=== PATIENT | female | born 1975 | race American Indian/Alaskan Native ===

== ENCOUNTER 2017-12-18 10:50 | Emergency (ER) | payer BC, OTHER ==
[~2017-12-18] VITALS: Ht 165.1 cm; Wt 120.2 kg
[~2017-12-18 10:50] MED LIST: AMOX TR-K CLV1 EAC1 PO; FERROUS SULFAT325 MG; METFORMIN HCL500 MG; PRENATA CHEWAB1 EACH
--- OUTSIDE RECORDS SUMMARY | 2017-12-18 11:33 | XMS | Clinical Summary ---
Demographics + + + | Address | [address] [place] [address] Rd | | | [place] [address] | + + + | Home Phone | | + + + | Preferred Language | Unknown | + + + | Marital Status | Single | + + + | Latter-Day Affiliation | Unknown | + + + | Race | or | + + + | Ethnic Group | Not or | + + + Author + + + | Author | [facility] | + + + | Organization | [facility] | + + + | Address | Unknown | + + + | Phone | Unavailable | + + + Support + + +---------+ + | Name | Relationship | Address | Phone | + + +---------+ + | TANK BUENROSTRO | ECON | Unknown | | + + +---------+ + Care Team Providers + +------+ + | Care Conference Translator Name | Role | Phone | + +------+ + | Bev Hobbs PA-C | PP | | + +------+ + Source Comments YEE is fully live on both [facility] and [facility]Patient.[facility] Allergies Not on File Current Medications Not on file Active Problems + + + | Problem | Noted Date | + + + | No-show for appointment | 12/24/2016 | + + + Social History + +-------+ +--------+------+ | Tobacco Use | Types | Packs/Day | Years | Date | | | | | Used | | + +-------+ +--------+------+ | Never Assessed | | | | | + +-------+ +--------+------+ + + + | Sex Assigned at | Date Recorded | | | | + + + | Not on file | | + + + Plan of Treatment + + + + + | Health Maintenance | Due Date | Last Done | Comments | + + + + + | INFLUENZA VACCINE | | | | | (FLU SHOT) | 7 | | | + + + + + Results Not on filefrom Last 3 Months"
--- OUTSIDE RECORDS SUMMARY | 2017-12-18 11:33 | XMS | Clinical Summary ---
Demographics + + + | Address | [address] | | | [place] [address] | + + + | Home Phone | | + + + | Preferred Language | Unknown | + + + | Marital Status | | + + + | Uatsdin Affiliation | PAUMA AMERI | + + + | Race | or | + + + | Ethnic Group | Not or | + + + Author + + + | Author | [facility] | + + + | Organization | [facility] | + + + | Address | Unknown | + + + | Phone | Unavailable | + + + Support + + + + + | Name | Relationship | Address | Phone | + + + + + | Alexandria Zurita | SATISH | [place] | | + + + + + | MICKY FLOYD | ECON | [place] | | + + + + + Care Team Providers + +------+ + | Care Crocheter Hand Name | Role | Phone | + +------+ + | None Per Patient, None Per | PP | Unavailable | | Pt | | | + +------+ + Allergies + + + + + + | Active Allergy | Reactions | Severity | Noted | Comments | | | | | Date | | + + + + + + | Codeine | Other (See Comments) | Low | 02/29/20 | Severe Cramping, | | | | | 11 | chest and stomach | | | | | | pressure,sob | + + + + + + | Milk Containing | Hives | Medium | 09/03/20 | Itch, welts, loose | | Products | | | 11 | stools | + + + + + + | Nickel | Rash | Low | 09/03/20 | Bruises, welts | | | | | 11 | | + + + + + + | Acetaminophen | Other (See Comments) | Low | 09/02/20 | Stomach cramps | | | | | 11 | | + + + + + + | Hydrocodone-Acetamin | Other (See Comments) | Low | 02/29/20 | Headache, stomach | | ophen | | | 11 | pressure, numb legs | + + + + + + Current Medications + + +-------+---------+------+------+-------+ | Prescription | Sig. | Disp. | Refills | Star | End | Statu | | | | | | t | Date | s | | | | | | Date | | | + + +-------+---------+------+------+-------+ | metFORMIN | Take 750 mg by mouth | | | | | Activ | | (GLUCOPHAGE-XR) 750 | 2 Times Daily (with | | | 12/15 | | e | | mg XR tablet | Meals). | | | 11 | | | + + +-------+---------+------+------+-------+ | vitamin C with | Take 1 tablet by | | | 06/0 | | Activ | | flavia hips (VITAMIN | mouth Daily. | | | 3/20 | | e | | C) 1,000 mg Tab | Sporadically takes | | | 11 | | | + + +-------+---------+------+------+-------+ | MULTIVITAMIN WITH | Take 1 tablet by | | | 06/0 | | Activ | | MINERALS | mouth Daily. | | | 3/20 | | e | | (MULTIVITAMIN AND | Sporadically takes | | | 11 | | | | MINERALS ORAL) | | | | | | | + + +-------+---------+------+------+-------+ | CALCIUM CARBONATE | Take 1 tablet by | | | 06/0 | | Activ | | (CALCIUM 600 ORAL) | mouth Daily. Takes | | | 3/20 | | e | | | sporadically | | | 11 | | | + + +-------+---------+------+------+-------+ | vitamin D | Take 50,000 Units by | | | | | Activ | | (ERGOCALCIFEROL) | mouth Once a Week. | | | | | e | | 50,000 unit capsule | | | | | | | + + +-------+---------+------+------+-------+ | biotin (BIOTIN) | Take 300 mcg by | | | | | Activ | | 300 mcg Tab | mouth Daily. | | | | | e | + + +-------+---------+------+------+-------+ | iron | Take 1 capsule by | | | | | Activ | | polysaccharides | mouth Daily With | | | | | e | | (NIFEREX 60) 60 mg | Meal. | | | | | | | capsule | | | | | | | + + +-------+---------+------+------+-------+ | cyanocobalamin | Take 1,000 mcg by | | | | | Activ | | (VIT B-12) 1,000 mcg | mouth Daily. | | | | | e | | tablet | | | | | | | + + +-------+---------+------+------+-------+ | Magnesium 250 mg | Take by mouth. | | | | | Activ | | Tab | | | | | | e | + + +-------+---------+------+------+-------+ | POT CHLORIDE/YOUNG | Take by mouth. | | | | | Activ | | PHOS/MAG (POTASSIUM | | | | | | e | | CL-CALCIUM PHOS-MAG | | | | | | | | ORAL) | | | | | | | + + +-------+---------+------+------+-------+ Active Problems + + + | Problem | Noted Date | + + + | Malnutrition following gastrointestinal surgery | 10/01/2011 | + + + | Morbid obesity (HCC) | 06/06/2011 | + + + | Obstructive sleep apnea of adult | 06/06/2011 | + + + | Type 2 diabetes mellitus (HCC) | 06/06/2011 | + + + | Arthritis | | + + + | Lower extremity edema | | + + + | Back pain | | + + + | Dyslipidemia | | + + + | Polycystic ovarian syndrome | | + + + Social History + +-------+ +--------+------+ | Tobacco Use | Types | Packs/Day | Years | Date | | | | | Used | | + +-------+ +--------+------+ | Never Smoker | | | | | + +-------+ +--------+------+ + + +---------+ + | Alcohol Use | Drinks/We | oz/Week | Comments | | | ek | | | + + +---------+ + | No | | | 9 yrs ago | + + +---------+ + + + + | Sex Assigned at | Date Recorded | | | | + + + | Not on file | | + + + Last Filed Vital Signs + + + + | Vital Sign | Reading | Time Taken | + + + + | Blood Pressure | 133/72 | 07/12/2012 3:00 PM PDT | + + + + | Pulse | 54 | 07/12/2012 3:00 PM PDT | + + + + | Temperature | 35.6 C (96 F) | 07/12/2012 3:00 PM PDT | + + + + | Respiratory Rate | 16 | 09/06/2011 11:17 AM PST | + + + + | Oxygen Saturation | 94% | 09/06/2011 11:17 AM PST | + + + + | Inhaled Oxygen | - | - | | Concentration | | | + + + + | Weight | 122 kg (269 lb) | 07/12/2012 3:00 PM PDT | + + + + | Height | 167.6 cm (5' 6") | 07/12/2012 3:00 PM PDT | + + + + | Body Mass Index | 43.42 | 07/12/2012 3:00 PM PDT | + + + + Plan of Treatment + + + + + | Health Maintenance | Due Date | Last Done | Comments | + + + + + | Eye Exam Chronic | | | | | Disease | 5 | | | + + + + + | Foot Exam | | | | | | 5 | | | + + + + + | Microalbuminuria | | | | | | 5 | | | + + + + + | HIV Screening | | | | | | 0 | | | + + + + + | Pneumo 19-64 Medium | | | | | Risk (1 of 1 - | 4 | | | | PPSV23) | | | | + + + + + | Tetanus | | | | | | 4 | | | + + + + + | Cervical Cancer | | | | | Screening | 6 | | | + + + + + | Lipid Screening | | 01/21/2011 | | | | 2 | | | + + + + + | Hemoglobin A1c | | 03/12/2012, 12/05/2011, | | | | 2 | 01/21/2011 | | + + + + + | Breast Cancer | | | | | Screening | 5 | | | + + + + + | IMM Influenza (#1) | | | | | | 7 | | | + + + + + Results Not on filefrom Last 3 Months Insurance + +--------+ +--------+-------+---------+ | Payer | Benefi | Subscriber | Type | Phone | Address | | | t Plan | ID | | | | | | / | | | | | | | Group | | | | | + +--------+ +--------+-------+---------+ | NETWORK OTHER | FIRST | [id number] | Indemn | | | | | CHOICE | | ity | | | | | | | | | | | | HEALTH | | | | | | | | | | | | | | NETWOR | | | | | | | K | | | | | | | OTHER | | | | | + +--------+ +--------+-------+---------+ + +--------+ +--------+ + + | Guarantor Name | Accoun | Relation to | Date | Phone | Billing Address | | | t Type | Patient | of | | | | | | | | | | + +--------+ +--------+ + + | MINI RIZO | Person | Self | [birth year] | Work: | [id number] | | | jazlyn/Sh[place]om | | 1974 | [phone] | [place] | | | [place]zy | | | [address]: | [phone] | | | | | | | | | | | | | [phone] | | | | | | | 1903 | | + +--------+ +--------+ + + Advance Directives Patient has advance directives. For more information, please contact:[email or web address] [place] [address]
--- OUTSIDE RECORDS SUMMARY | 2017-12-18 11:34 | XMS | Clinical Summary ---
Demographics + + + | Address | [address] | | | [place] [address] | + + + | Home Phone | | + + + | Preferred Language | Unknown | + + + | Marital Status | | + + + | Church Affiliation | CAMPO AMERI | + + + | Race [...] Team Providers + +------+ + | Care Brick Shader Name | Role | Phone | + [...] +--------+-------+---------+ | NETWORK OTHER | FIRST | [id number] | Indemn | | | | | [...] | Self | [birth year] | Work: | [id number] | | | jazlyn/Shalom | | 1974 | [phone] | [place] | | | suzy | | | [address] Home: | [phone] | | | | | | | | | | | | | [phone] | | | | | | | 1903 | | + +--------+ +--------+ + + Advance Directives Patient has advance directives. For more information, please contact:[email or web address] [place] [address]
--- OUTSIDE RECORDS SUMMARY | 2017-12-18 11:34 | XMS | Clinical Summary ---
Demographics + + + | Address | [address] [place] [address] Rd | | | [place] [address] | + + + | Home Phone | | + + + | Preferred Language | Unknown | + + + | Marital Status | Single | + + + | Islam Affiliation | Unknown | + + + [...] Team Providers + +------+ + | Care Detonator Maker Name | Role | Phone | + +------+ + | Bev Hobbs PA-C | PP | | + +------+ + Source Comments YEE is fully live on both [facility] and [facility] InPatient.[facility] Allergies Not on File Current Medications [...]
--- NOTE | 2018-01-07 12:48 | HP ---
[facility] [address], [place] [address] Signed ADMISSION DATE: 12/18/2017 CHIEF COMPLAINT: Possible ectopic . HISTORY OF PRESENT ILLNESS: Ms. Troy Zurita is a pleasant 42-year-old G4, P1-0-2-1, [place] female, who presents to the emergency room complaining of positive test, spotting, and slight abdominal and pelvic pain. She believes her last menstrual period was approximately 11/09/2017, and reports her periods are regular every approximately 40 days. She has a 3-day history of some cramping in the right lower quadrant that is made worse with eating. She also developed light spotting approximately 10 days ago, which she thought was an early period. The bleeding has gone from red to brown waxing and waning, and is now more red. She is currently sexually active with her boyfriend of 1-1/2 years and has noticed increased breast tenderness and some spontaneous approximately 3 weeks ago. Last night, she became concerned that she might be and presented to [facility] for further evaluation. A urine test was performed and positive. The patient was sent to the emergency room for possible ectopic . While in the emergency room, she had a quant hCG of 706, and an ultrasound that showed no intrauterine . There is a small mass 1.3 x 1.0 x 1.1 cm with a central fluid collection near the right ovary. The right ovary is normal and the left ovary shows a small cyst suspicious for corpus luteum. In the right adnexal mass, there is no obvious pole, yolk sac, or gestational sac. There is no pseudo sac or gestational sac, pole or yolk sac located in the uterus either. I was asked to present and evaluate the patient. PAST MEDICAL HISTORY: 1. Obesity status post Yamile-en-Y. 2. PCOS. PAST SURGICAL HISTORY: 1. Cholecystectomy. 2. Yamile-en-Y in 2010. 3. Knee surgery. 4. Prior . MEDICATIONS: Multivitamin. ALLERGIES: 1. Codeine. Electronically Signed By: HADLEY TIMMONS DO 01/07/18 1248 PATIENT NAME: MINI CERVANTES HISTORY AND PHYSICAL DATE OF : 75 REPORT #: [id number] PHYSICIAN: HADLEY TIMMONS DO PCP: AWILDA NEIL REPORT IS CONFIDENTIAL AND NOT TO BE RELEASED WITHOUT AUTHORIZATION [facility] [address], [place] [address] Signed 2. Vicodin. 3. Percocet. 4. She has cramping and hives with oral narcotics. SOCIAL HISTORY: She does not smoke or drink or use illicit drugs. Approximately 20 lifetime partners with no history of sexually transmitted diseases. FAMILY HISTORY: Her maternal grandmother had cancer of her leg and her maternal grandfather had skin and prostate cancer. She denies any other medical family history. REVIEW OF SYSTEMS: A complete review of systems was performed and positive only for low cramping in the right pelvis that radiates toward the rectum for approximately 3 days. Of note, she has no history of ectopic , STD or infertility. PHYSICAL EXAMINATION: VITAL SIGNS: Temperature 99.1, pulse 60, respiratory rate 16, blood pressure 119/49, pulse ox 100. GENERAL: The patient is resting comfortably in the ER cot, in no apparent distress. She is pleasant and cooperative. She makes good eye contact and is laughing and joking. HEENT: Normocephalic, atraumatic. NECK: Supple. Trachea midline. No thyroid masses or nodules. RESPIRATORY: Lungs are clear to auscultation bilaterally. Normal respiratory effort. HEART: Regular rate and rhythm. ABDOMEN: Obese, soft, nondistended, nontender. There is no guarding or rebound. Prior surgical scars consistent with surgical history including Pfannenstiel skin incision. EXTREMITIES: No edema. Normal range of motion. PELVIC: Normal. EXTERNAL GENITALIA: Normal clitoris, urethral meatus, bilateral Bartholin's. The vagina appears normal with normal rugae. No significant prolapse. There is a tiny amount of blood at the cervical os, but the os is closed. On bimanual exam, the uterus is small, anteverted and nontender. The left adnexa is nontender and the right adnexa is very slightly tender to exam. She again has no rebound or guarding and reports minimal tenderness to pelvic exam. LABORATORY DATA: WBC 7.0, hemoglobin 11.8, platelets 254. Sodium 137, potassium 3.9, chloride 107, carbon dioxide 26, BUN 15, creatinine 0.47, glucose 87. Quant hCG 706.8. Urine is normal. IMAGING: Electronically Signed By: HADLEY TIMMONS DO 01/07/18 1248 PATIENT NAME: MINI CERVANTES HISTORY AND PHYSICAL DATE OF : 75 REPORT #: [id number] PHYSICIAN: HADLEY TIMMONS DO PCP: AWILDA NEIL REPORT IS CONFIDENTIAL AND NOT TO BE RELEASED WITHOUT AUTHORIZATION [facility] [address] [place] [id number] Signed Pelvic ultrasound as above. ASSESSMENT: of unknown location. PLAN: Discussed options for further evaluation and treatment of of unknown location. There is a suspicious mass in the right adnexa for possible tubal ectopic . There is no definitive with pole or yolk sac. There are changes that may suggest an ectopic . There is no evidence of intrauterine at this point. We discussed that her quant hCG at 700 is well below the discriminatory zone and there is a chance for a viable , however, this is unlikely. We discussed the option of diagnostic laparoscopy with possible right salpingectomy if there is a mass is suspicious for ectopic . We also discussed the option of returning 48 hours with repeat quant and ultrasound. We did discuss that methotrexate is not a good option at this time as this is a wanted and may represent a heterotopic or viable intrauterine , however, most likely is ectopic again at this point. The patient strongly feels that she would like to delay surgery at this point and elects for evaluation in 48 hours. She will return to the ER for repeat labs and ultrasound. We will also check a blood type and give RhoGAM if she is Rh negative. We did discuss the not insignificant risk of progression to tubal rupture with internal bleeding and discussed that continued observation is only appropriate if she is reliable for followup and presents should she have any abdominal pain or worsening of symptoms. The patient understands and agrees and seems reliable at this time to continue observation. Risks, benefits, and alternatives were again discussed in great detail. I reviewed this with Dr. Wilkes, the ER physician, who agrees with this plan. All questions were answered and patient will follow up as above. DO MIGUEL ANGEL Tang/DIEGO /[id number] Copies: Electronically Signed By: HADLEY TIMMONS, DO 01/07/18 1248 PATIENT NAME: MINI CERVANTES HISTORY AND PHYSICAL DATE OF : 75 REPORT #: [id number] PHYSICIAN: HADLEY TIMMONS DO PCP: AWILDA NEIL REPORT IS CONFIDENTIAL AND NOT TO BE RELEASED WITHOUT AUTHORIZATION [address] [facility] [place] [place] [address] Signed ~ Electronically Signed By: HADLEY TIMMONS, DO 01/07/18 1248 PATIENT NAME: MINI CERVANTES HISTORY AND PHYSICAL DATE OF : 75 REPORT #: [id number] PHYSICIAN: HADLEY TIMMONS DO PCP: AWILDA NEIL REPORT IS CONFIDENTIAL AND NOT TO BE RELEASED WITHOUT AUTHORIZATION
== END 2017-12-18 14:50 | disposition home or self-care (01) ==
LOC: ED 10:50
DX: O09.521 Supervision of elderly multigravida, first trimester (principal); O20.0 Threatened abortion; Z87.891 Personal history of nicotine dependence; Z88.5 Allergy status to narcotic agent; Z79.899 Other long term (current) drug therapy; Z79.2 Long term (current) use of antibiotics
CPT/HCPCS: 36415; 76801; 76817; 80048; 81001; 84702; 84703; 85025; 99284

== ENCOUNTER 2017-12-20 07:39 | Day surgery (SDC) | payer BC, OTHER ==
[~2017-12-20] VITALS: Ht 165.1 cm; Wt 126.1 kg
--- OUTSIDE RECORDS SUMMARY | ~2017-12-20 | XMS | Clinical Summary ---
Demographics + + + | Address | [address] | | | [place] [address] | + + + | Home Phone | | + + + | Preferred Language | Unknown | + + + | Marital Status | | + + + | Christianity Affiliation | HOH AMERI | + + + | Race [...] Team Providers + +------+ + | Care Carbon Paper Coating Supervisor Name | Role | Phone | + [...] +--------+-------+---------+ | NETWORK OTHER | FIRST | [id number] | Indemn | | | | | [...] | Self | [birth year] | Work: | [id number] | | | jazlyn/Shalom | | 1974 | [phone] | [place] | | | suzy | | | [address]: | [phone] | | | | | | | | | | | | | [phone] | | | | | | | 1903 | | + +--------+ +--------+ + + Advance Directives Patient has advance directives. For more information, please contact:[email or web address] [place] [address]
--- OUTSIDE RECORDS SUMMARY | ~2017-12-20 | XMS | Clinical Summary ---
Demographics + + + | Address | [address] [place] [address] Rd | | | [place] [address] | + + + | Home Phone | | + + + | Preferred Language | Unknown | + + + | Marital Status | Single | + + + | Yazidi Affiliation | Unknown | + + + [...] Team Providers + +------+ + | Care Cable Engineer Name | Role | Phone | + +------+ + | Bev Hobbs PA-C | PP | | + +------+ + Source Comments YEE is fully live on both [facility] Ambulatory and [facility] InPatient.[facility] Allergies Not on File Current Medications [...]
--- OUTSIDE RECORDS SUMMARY | ~2017-12-20 | XMS | Clinical Summary ---
Demographics + + + | Address | [address] | | | [place] [address] | + + + | Home Phone | | + + + | Preferred Language | Unknown | + + + | Marital Status | | + + + | Quaker Affiliation | NAKNEK AMERI | + + + | Race [...] Team Providers + +------+ + | Care Oracle Engineer Name | Role | Phone | [...] +--------+-------+---------+ | NETWORK OTHER | FIRST | [id number] | Indemn | | | | | [...] | Self | [birth year] | Work: | [address] | | | jazlyn/Shalom | | 1974 | [phone] | [place] | | | suzy | | | [address] Home: | [phone] | | | | | | | | | | | | | [phone] | | | | | | | 1903 | | + +--------+ +--------+ + + Advance Directives Patient has advance directives. For more information, please contact:[email or web address] [place] [address]
--- OUTSIDE RECORDS SUMMARY | ~2017-12-20 | XMS | Clinical Summary ---
Demographics + + + | Address | [address] [place] [address] Rd | | | [place] [address] | + + + | Home Phone | | + + + | Preferred Language | Unknown | + + + | Marital Status | Single | + + + | Amish Affiliation | Unknown | + + + [...] Team Providers + +------+ + | Care Director Of Rotc Name | Role | Phone | + +------+ + | Bev Hobbs PA-C | PP | | + +------+ + Source Comments YEE is fully live on both [facility] and [facility] InPatient.[facility] Allergies Not on File Current Medications Not [...]
--- OUTSIDE RECORDS SUMMARY | ~2017-12-20 | XMS | Clinical Summary ---
Demographics + + + | Address | [address] | | | [place] [address] | + + + | Home Phone | | + + + | Preferred Language | Unknown | + + + | Marital Status | | + + + | Hindu Affiliation | SQUAXIN AMERI | + + + | Race [...] Team Providers + +------+ + | Care Assistant Librarian Name | Role | Phone | + [...] +--------+-------+---------+ | NETWORK OTHER | FIRST | [id number] | Indemn | | | | | [...] | Self | [birth year] | Work: | [address] | | | jazlyn/Shalom | | 1974 | [phone] | [place] | | | suzy | | | [address] Home: | [phone] | | | | | | | | | | | | | [phone] | | | | | | | 1903 | | + +--------+ +--------+ + + Advance Directives Patient has advance directives. For more information, please contact:[email or web address] [place] [address]
--- OUTSIDE RECORDS SUMMARY | ~2017-12-20 | XMS | Clinical Summary ---
Demographics + + + | Address | [address] [place] [address] Rd | | | [place] [address] | + + + | Home Phone | | + + + | Preferred Language | Unknown | + + + | Marital Status | Single | + + + | Holiness Affiliation | Unknown | + + + [...] Team Providers + +------+ + | Care Wood Polisher Name | Role | Phone | + +------+ + | Bev Hobbs PA-C | PP | | + +------+ + Source Comments YEE is fully live on both [facility] Ambulatory and [facility] InPatient.[facility] Allergies Not on File Current Medications Not [...]
[2017-12-20] MEDS ORDERED: ULTRAM50 MG PO (15:33)
[2017-12-20] MEDS ORDERED: DILAUDID2 MG PO (15:34)
--- NOTE | 2018-01-07 12:43 | OR ---
[facility] [address] [place], [place] [address] Signed DATE OF OPERATION: 12/20/2017 SURGEON: Hadley Vee DO PREOPERATIVE DIAGNOSES: 1. Right tubal ectopic . 2. Obesity. POSTOPERATIVE DIAGNOSES: 1. Right tubal ectopic . 2. Obesity. PROCEDURE PERFORMED: Laparoscopic right salpingectomy. SAFE TECHNICIAN: None. ANESTHESIA: General. ESTIMATED BLOOD LOSS: 10 mL. SPECIMEN: Right fallopian tube and products of conception. FINDINGS: Right fallopian tube with ectopic , mid ampullary portion. Some clot extruding from the fimbriated end. Small paratubal cyst. Small adhesion of omentum to anterior abdominal wall above the umbilicus. Hemostasis at the end the procedure. COMPLICATIONS: None. INDICATIONS: Ms. Troy Zurita is a pleasant 42-year-old, G4, P 1-0-2-1 mohe[place] female, who presented to the emergency department with spotting and right adnexal pain 2 days ago. Her quant was 700 and there was a suspicious mass near the right fallopian tube. The pain was minimal and this was a wanted and the patient declined intervention at that time, but Electronically Signed By: HADLEY VEE DO 01/07/18 1243 PATIENT NAME: MINI CERVANTES OPERATIVE REPORT DATE OF : 75 REPORT #: [id number] PHYSICIAN: HADLEY VEE DO PCP: AWILDA NEIL REPORT IS CONFIDENTIAL AND NOT TO BE RELEASED WITHOUT AUTHORIZATION [facility] [address] [place], [place] [address] Signed agreed to come back 48 hours later for serial quant and repeat ultrasound. Upon her return today, her quant had increased somewhat and repeat ultrasound showed very likely gestational sac in the right fallopian tube. Her pain was somewhat increased. We discussed options for methotrexate, continued observation, or laparoscopy. Risks, benefits, and alternatives were discussed in detail with the patient. The patient wishes to proceed with laparoscopy and showed an ectopic be found to proceed with salpingectomy. TECHNIQUE: The patient was taken to the operating room where a time-out was performed to confirm correct patient and correct procedure. General anesthesia was adequately established. The patient was prepped and draped in the dorsal lithotomy position with her feet in Yellofin stirrups. ICPs were on and running. No preop antibiotics or heparin were indicated. A weighted speculum was placed in vagina and the anterior lip of the cervix was grasped with single-tooth tenaculum after Ibarra catheter previously inserted. An [place] uterine manipulator was placed. The surgeon's gloves were changed and attention was turned to the abdomen. The base of the umbilicus was infiltrated with 0.25% Marcaine with epinephrine. A 5 mm incision was made at the base of the umbilicus and a 5 mm trocar was placed under direct visualization without complication. Pneumoperitoneum was established with low opening pressures and the omentum and bowel were examined and found to be normal. Survey of the abdomen and pelvis was performed. 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 The liver appears normal and the gallbladder has previously been removed. There was one small adhesion of the omentum to the anterior abdominal wall just superior to the umbilicus. A survey of the pelvis was then performed. She has a normal uterus, left ovary, and fallopian tube. The right adnexa has a small amount of clot near the fimbriated end and the right tube is abnormal with evidence of an ectopic in the mid ampullary portion. A decision was made to proceed with salpingectomy. A 5 mm trocar was placed in the right lower quadrant under direct visualization without complication and a 2nd 8mm expanding port was placed just superior to this. The fimbriated end was grasped with a grasper, elevated and the tube was divided along the mesosalpinx to approximately 1.5 cm from the cornua. The tube was then amputated and the mesosalpinx was found to be hemostatic. The tube was removed through the trocar and sent to pathology for further evaluation. She had a small paratubal cyst that was removed as well and all clot was also removed and sent to Pathology with the specimen. The pelvis was irrigated and found to be hemostatic. Blood and irrigant were suctioned. The 5 mm scope was then placed through one of the lateral ports and the small omental adhesion was divided near the abdominal wall. This was found to be hemostatic. The trocars were removed. Pneumoperitoneum was reduced and the patient's incisions were then closed with 4-0 Vicryl in a subcuticular stitch with good hemostasis and cosmesis. The Ibarra catheter was removed. The single-tooth tenaculum was removed and the pelvis was found to be hemostatic. The patient was then Electronically Signed By: HADLEY VEE DO 01/07/18 1243 PATIENT NAME: MINI CERVANTES OPERATIVE REPORT DATE OF : 75 REPORT #: [id number] PHYSICIAN: HADLEY VEE DO PCP: AWILDA NEIL REPORT IS CONFIDENTIAL AND NOT TO BE RELEASED WITHOUT AUTHORIZATION [facility] [address] [place], [place] [address] Signed taken to [facility] in good and stable condition. Sponge, needle, and instrument counts were correct x2. DO MIGUEL ANGEL Tang/DIEGO /[id number] Copies: ~ Electronically Signed By: HADLEY VEE DO 01/07/18 1243 PATIENT NAME: MINI CERVANTES OPERATIVE REPORT DATE OF : 75 REPORT #: [id number] PHYSICIAN: HADLEY VEE DO PCP: AWILDA NEIL REPORT IS CONFIDENTIAL AND NOT TO BE RELEASED WITHOUT AUTHORIZATION
== END 2017-12-20 16:30 | disposition home or self-care (01) ==
LOC: ED 07:39 → DSVR 10:47 → DS 11:10 → DSVR 13:40 → MS 13:40 → DS 16:30
PROVIDERS: Obstetrics & Gynecology
PROC: 0UT54ZZ Resection of Right Fallopian Tube, Percutaneous Endoscopic Approach (ICD-10-PCS; 2017-12-20)
PROC: 10T24ZZ Resection of Products of Conception, Ectopic, Percutaneous Endoscopic Approach (ICD-10-PCS; 2017-12-20)
PROC: 0UB54ZZ Excision of Right Fallopian Tube, Percutaneous Endoscopic Approach (ICD-10-PCS; principal; 2017-12-20 10:57)
PROC: 10T24ZZ Resection of Products of Conception, Ectopic, Percutaneous Endoscopic Approach (ICD-10-PCS; principal; 2017-12-20 10:57)
PROC: 10T24ZZ Resection of Products of Conception, Ectopic, Percutaneous Endoscopic Approach (ICD-10-PCS; 2017-12-20 10:57)
DX: O00.101 Right tubal pregnancy without intrauterine pregnancy (principal); E66.01 Morbid (severe) obesity due to excess calories; Z68.42 Body mass index [BMI] 45.0-49.9, adult; Z98.84 Bariatric surgery status; Z3A.01 Less than 8 weeks gestation of pregnancy; Z98.890 Other specified postprocedural states; Z88.5 Allergy status to narcotic agent
CPT/HCPCS: 00840; 36415; 76801; 76817; 84702; 85025; 86850; 86900; 86901; 99285; J0131; J1100; J1885; J2250; J2405; J2704; J2765; J3010; J7120

== ENCOUNTER 2021-02-28 11:59 | Emergency (ER) | payer BC, OTHER ==
[~2021-02-28] VITALS: Ht 165.1 cm; Wt 140.6 kg
[~2021-02-28 11:59] MED LIST changes: +ALLEGRA ALLERG180 MG PO; +DILAUDID2 MG PO; +EPINEPHRIN0.3 MG/0.3 IM; +EPIPEN 2-P0.3 MG/0.3 IM; +GABAPENTIN600 MG PO; +MIRALAX17 GM PO; +NUCYNTA50 MG PO; +ONE DAILY ESSE1 EACH PO; +SENNA LAX8.6 MG PO; +TRAMADOL HCL50 MG PO; +ULTRAM50 MG PO; +VITAMIN C1000 MG PO; +VITAMIN D5000 UNIT PO
== END 2021-02-28 15:12 | disposition home or self-care (01) ==
LOC: ED 11:59
DX: R20.2 Paresthesia of skin (principal); T50.8X5A Adverse effect of diagnostic agents, initial encounter; Z88.5 Allergy status to narcotic agent; Z88.8 Allergy status to other drugs, medicaments and biological substances; Z79.899 Other long term (current) drug therapy
CPT/HCPCS: 99283; J1100

== ENCOUNTER 2021-03-21 14:06 | Emergency (ER) | payer BC, OTHER ==
[~2021-03-21] VITALS: Ht 165.1 cm; Wt 140.6 kg
--- OUTSIDE RECORDS SUMMARY | 2021-03-21 14:10 | XMS ---
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 \T\middot;\T\nbsp; PLEASE REFER PATIENT TO [facility] FOR NON EMERGENT MEDICAL NEEDS. \T\middot;\ T\nbsp; [facility] CAN SEE PATIENTS SAME DAY FOR APTS IF PATIENT CALLS FIRST THING IN THE MORNING. E.D. VISIT COUNT (12 MO.) 2 [facility] TOTAL 2 NOTE: Visits indicate total known visits. ED/UCC VISIT TRACKING (12 MO.) 03/21/2021 14:08 [facility] TYPE: Emergency COMPLAINT: - SOB, LEG PAINS, PRESSURE HEADACHE 02/28/2021 11:59 [facility] TYPE: Emergency COMPLAINT: - MEDICATION REACTION DIAGNOSES: - Paresthesia of skin - Other care home (current) drug therapy - Adverse effect of diagnostic agents, initial encounter - Allergy status to other drugs, medicaments and biological substances - Allergy status to narcotic agent INPATIENT VISIT TRACKING (12 MO.) No inpatient visits to display in this time frame [email or web address]
== END 2021-03-21 23:38 | disposition home or self-care (01) ==
LOC: ED 14:06
DX: R06.00 Dyspnea, unspecified (principal); Z88.5 Allergy status to narcotic agent; Z88.8 Allergy status to other drugs, medicaments and biological substances; Z79.899 Other long term (current) drug therapy
CPT/HCPCS: 71045; 80053; 84484; 85025; 85379; 93970; 99285-25

== ENCOUNTER 2023-07-06 11:40 | Emergency (ER) | payer BC, OTHER ==
[~2023-07-06] VITALS: Ht 165.1 cm; Wt 140.6 kg
[2023-07-06] MEDS ORDERED: ONDANSETRON HCL4 MG PO (11:55)
[2023-07-06] MEDS ORDERED: SUMATRIPTAN SUC25 MG PO (11:55)
[2023-07-06 12:39] LABS: BASOPHILS 0.4 % (0-2); EOSINOPHILS 0.9 % (0-6); HEMATOCRIT 34.4 % (35.0-50.0); LYMPHOCYTES 21.8 % (24-44); MCH 25.1 (27-36); MCHC 32.1 g/dl (30-36); MCV 78.4 fl (81-99); MONOCYTES 5.1 % (0-12); NEUTROPHILS 71.8 % (39-80); PLATELET COUNT 331 K/uL (140-440); RBC 4.38 M/ul (4.3-5.7); RDW 17.9 (10.5-15.0)
[2023-07-06 12:47] LABS: INFLUENZA B NAA NEGATIVE (NEGATIVE); RESPIRATORY SYNCYTIAL VIR NAA NEGATIVE (NEGATIVE)
[2023-07-06 12:55] LABS: ALBUMIN 3.3 g/dL (3.4-5.0); ALBUMIN/GLOBULIN RATIO 0.79 (1.1-2.4); ANION GAP 11.1 (7-21); BILIRUBIN, TOTAL 0.5 ng/dL (0.2-1.0); CALCIUM 8.6 mg/dL (8.5-10.1); CREATININE, SERUM 0.56 mg/dL (0.55-1.02); POTASSIUM 4.1 mmol/L (3.5-5.1); PROTEIN, TOTAL 7.5 g/dL (6.4-8.2)
[2023-07-06] MEDS ORDERED: ONDANSETRON ODT8 MG PO (13:55)
[2023-07-06 14:09] VITALS: BP 138/78
--- NOTE | 2023-07-06 17:40 | EKG ---
[facility] [address] [facility] [place], [place] [address] Signed Sinus bradycardia with sinus arrhythmia Otherwise normal ECG When compared with ECG of 22-JUL-2018 09:37, No significant change was found Confirmed by TINA NARVAEZ MD ([id number]) on 07/06/2023 5:40:36 PM Electronically Signed By: TINA NARVAEZ 07/06/23 1740 PATIENT NAME: MINI CERVANTES Electrocardiogram DATE OF : 75 PHYSICIAN: TINA NARVAEZ REPORT #: [id number] REPORT IS CONFIDENTIAL AND NOT TO BE RELEASED WITHOUT AUTHORIZATION
== END 2023-07-06 14:09 | disposition home or self-care (01) ==
LOC: ED 11:40
PROVIDERS: Emergency Medicine
DX: T78.40XA Allergy, unspecified, initial encounter (principal); Z88.8 Allergy status to other drugs, medicaments and biological substances; Z88.5 Allergy status to narcotic agent; Z79.899 Other long term (current) drug therapy; Z20.822 Contact with and (suspected) exposure to COVID-19
CPT/HCPCS: 36415; 80053; 85025; 87502; 93005; 93010; C9803; J2405; J7030; U0002

== ENCOUNTER 2023-08-11 16:32 | Emergency (ER) | payer OTHER, BC ==
[~2023-08-11] VITALS: Ht 165.1 cm; Wt 135.9 kg
[~2023-08-11 16:32] MED LIST changes: +ONDANSETRON HCL4 MG PO; +ONDANSETRON ODT8 MG PO; +SUMATRIPTAN SUC25 MG PO
[2023-08-11] MEDS ORDERED: METFORMIN HCL500 M1 PO (21:22)
[2023-08-11 21:59] LABS: BASOPHILS 0.3 % (0-2); EOSINOPHILS 0.3 % (0-6); HEMATOCRIT 34.5 % (35.0-50.0); HEMOGLOBIN 10.9 g/dL (12.0-18.0); LYMPHOCYTES 17.9 % (24-44); MCH 25.2 (27-36); MCHC 31.6 g/dl (30-36); MCV 79.7 fl (81-99); MONOCYTES 6.3 % (0-12); NEUTROPHILS 75.2 % (39-80); PLATELET COUNT 356 K/uL (140-440); RBC 4.33 M/ul (4.3-5.7); RDW 18.7 (10.5-15.0)
[2023-08-11 22:13] LABS: ALBUMIN 3.5 g/dL (3.4-5.0); ALBUMIN/GLOBULIN RATIO 0.83 (1.1-2.4); BILIRUBIN, TOTAL 0.5 ng/dL (0.2-1.0); BUN/CREATININE RATIO 18.07 (6.0-28.6); CALCIUM 8.9 mg/dL (8.5-10.1); CREATININE, SERUM 0.83 mg/dL (0.55-1.02); PROTEIN, TOTAL 7.7 g/dL (6.4-8.2)
[2023-08-12] MEDS ORDERED: CYCLOBENZAPRINE10 MG PO (00:12)
[2023-08-12] MEDS ORDERED: MELOXICAM7.5 MG PO (00:12)
[2023-08-12 00:25] VITALS: BP 105/82
== END 2023-08-12 00:25 | disposition home or self-care (01) ==
LOC: ED 16:32
PROVIDERS: Family Medicine
DX: S16.1XXA Strain of muscle, fascia and tendon at neck level, initial encounter (principal); S39.012A Strain of muscle, fascia and tendon of lower back, initial encounter; S40.021A Contusion of right upper arm, initial encounter; S80.02XA Contusion of left knee, initial encounter; V43.52XA Car driver injured in collision with other type car in traffic accident, initial encounter; Z88.5 Allergy status to narcotic agent; Z88.8 Allergy status to other drugs, medicaments and biological substances; Z91.018 Allergy to other foods; Z79.899 Other long term (current) drug therapy
CPT/HCPCS: 36415; 70450; 72070; 72100; 72125; 73060; 73560; 80053; 84703; 85025; 99284-25

== ENCOUNTER 2024-08-23 10:26 | Day surgery (SDC) | payer BC, OTHER ==
[~2024-08-23] VITALS: Ht 165.1 cm; Wt 125.5 kg
[~2024-08-23 10:26] MED LIST changes: +CEFAZOLIN SODIUM 2 GM/20 ML SYR IV SCH; +CEFAZOLIN SODIUM 3 GM/30 ML SYR IV SCH; +CYCLOBENZAPRINE10 MG PO; +DERMACINRX LID1 EACH; +DICLOFENAC EPO1 EACH TD; +IBLOOD GLUCOSE TEST STRIP 1 EA TEST VI PRN; +LACTATED RINGER'S 1,000 ML IV SCH; +LIDOCAINE HCL 1% 5 ML SDV INJ ONE; +MELOXICAM7.5 MG PO; +METFORMIN HCL500 M1 PO; +MIDAZOLAM HCL 5 MG/5 ML VIAL IV PRN; +WEGOVY2.4 MG/0.7 SQ; +fentaNYL citrate 100 MCG/2 ML VIAL IV PRN
[2024-08-23 11:03] VITALS: BP 92/48
[2024-08-23] MEDS ORDERED: MIDAZOLAM HCL 5 MG/5 ML VIAL ONE (12:15)
[2024-08-23] MEDS ORDERED: fentaNYL citrate 100 MCG/2 ML VIAL ONE (12:16)
[2024-08-23] MEDS ORDERED: ondansetron HCL 4 MG/2 ML VIAL ONE (12:33)
--- NOTE | 2024-08-23 13:24 | NUR ---
08/23/24 1324 Aminta Cardona 1313-PT ARRIVES TO PACU, A+OX4, DENIES PAIN OR NAUSEA, PT ENCOURAGED TO PASS GAS. VSS ON 3L VIA NC, RR EVEN AND UNLABORED. 1320- AT BEDSIDE DISCUSSING PROCEDURE RESULTS AND PLAN OF CARE W/ PT, ALL QUESTIONS ANSWERED. PT TITRATED TO RA, VSS, RR EVEN AND UNLABORED. PT PASSING GAS.
[2024-08-23 13:34] VITALS: BP 103/67
--- NOTE | 2024-08-24 14:08 | PATH ---
[facility] [address] [facility] [place], [place] [address] Signed SPECIMEN(S): A ILEOCECAL VALVE COLON POLYP SPECIMEN SOURCE: A. ILEOCECAL VALVE COLON POLYP CLINICAL HISTORY: Screening FINAL PATHOLOGIC DIAGNOSIS: Colon, ileocecal valve, polypectomy: - Colonic mucosa with no significant pathologic changes BRP MICROSCOPIC EXAMINATION: Histologic sections of all submitted blocks are examined by light microscopy. These findings, together with the gross examination, support the pathologic diagnosis. GROSS DESCRIPTION: The specimen, labeled and designated "[place], ileocecal valve colon polyp," is received in formalin and consists of seven asher soft tissue fragments, ranging from 0.2-0.3 cm. Entirely submitted in (A1). VB (under the direct supervision of a pathologist) The Gross Description was prepared using a voice recognition system. The report was reviewed for accuracy; however, sound-alike word errors, addition and/or deletions may occur. If there is any question about this report, please contact Client Services. ADDITIONAL NOTES: Immunohistochemical and/or in situ hybridization studies if performed in this case included appropriate positive controls that reacted as expected. This test was developed and its performance characteristics determined by [facility]. It has not been cleared or approved by the U.S. Food and Drug Administration. The FDA has determined that such clearance or approval is not necessary. This test is used for clinical purposes. It should not be regarded as investigational or for research. [facility] is certified under the Clinical Laboratory Improvement Amendments of 1988 (CLIA) as qualified to perform high complexity clinical laboratory testing. PATIENT NAME: MINI CERVANTES PATHOLOGY DATE OF : 75 REPORT #: [id number] PHYSICIAN: MILANA PATHOLOGY PCP: HADLEY CHANG MD REPORT IS CONFIDENTIAL AND NOT TO BE RELEASED WITHOUT AUTHORIZATION [address] [place], [place] [address] Signed PERFORMING LABORATORY: Technical component was performed by [facility], [address] [place] [address] (CLIA# [id number]). Professional [facility] [address] [id number] Diagnostician: John Narvaez MD Pathologist Electronically Signed 08/24/2024 Copies: ~ PATIENT NAME: MINI CERVANTES PATHOLOGY DATE OF : 75 REPORT #: [id number] PHYSICIAN: MILANA GORDON PCP: HADLEY CHANG MD REPORT IS CONFIDENTIAL AND NOT TO BE RELEASED WITHOUT AUTHORIZATION
--- NOTE | 2024-08-25 15:30 | OR ---
[facility] [address] [place], [place] [address] Signed DATE OF OPERATION: 08/23/2024 SURGEON: Valeria Estrada MD PREOPERATIVE DIAGNOSES: 1. Colon screening. 2. History of knee replacement. 3. Morbid obesity. BMI 45.2, status post gastric bypass in 2010, now on Wegovy. POSTOPERATIVE DIAGNOSES: 1. Sigmoid diverticulosis. 2. Internal hemorrhoids. 3. Possible polyp ileocecal valve (excised). PROCEDURE: Total colonoscopy to cecum with cold morcellation polypectomy x1. ANESTHESIA: Intravenous sedation; fentanyl 100 mcg and Versed 7 mg. PREOPERATIVE ANTIBIOTIC: Ancef 2 g. INDICATION: This morbidly obese 49-year-old Chinese woman is referred by Dr. Jurado of [facility] for consideration of colonoscopy. This is primarily for colon screening. She has no current symptoms of bleeding, diarrhea or constipation and no family history of colon cancer. Quite notably, she has undergone gastric bypass in 2010 and now is on Wegovy. Additionally, she has had knee replacement in the past. She is admitted at this time to undergo screening colonoscopy. She understands the risk of bleeding, infection, and perforation. FINDINGS: The prep was good. Complete colonoscopy was undertaken of the cecum. There was a small polyp of the ileocecal valve, which was excised with cold morcellation technique. The remaining colon showed no evidence of other polyps. She had diverticular change of the sigmoid colon and on retroflexed view internal hemorrhoidal changes as well. DESCRIPTION OF PROCEDURE: The patient was brought to the endoscopy suite and placed in lateral decubitus position, Electronically Signed By: VALERIA ESTRADA MD 08/25/24 1530 PATIENT NAME: MINI CERVANTES OPERATIVE REPORT DATE OF : 75 REPORT #: [id number] PHYSICIAN: VALERIA ESTRADA MD PCP: HADLEY JURADO MD REPORT IS CONFIDENTIAL AND NOT TO BE RELEASED WITHOUT AUTHORIZATION [facility] [address] [place], [place] [address] Signed given intravenous sedation to the point of slurred speech and nystagmus. Digital rectal examination was normal. An Olympus video colonoscope was passed in the rectum and manipulated throughout the colon noting diverticula of the sigmoid and left colon. Scope was ultimately advanced to the cecum. The ileocecal valve and appendiceal orifice were examined. There appeared to be a polyp of the ileocecal valve. It was not pedunculated and if anything sessile this was excised with cold morcellation technique. Scope was then withdrawn and examination undertaken showing no sign of additional polyps, only diverticula of the sigmoid and left colon. Retroflexed view of the rectum confirmed internal hemorrhoidal changes. Scope was straightened, withdrawn and removed. The patient was taken to the recovery room in good condition. CONCLUDING DIAGNOSIS: Questionable polyp of the ileocecal valve (excised). Diverticular change of sigmoid and left colon and internal hemorrhoids. PLAN: Recommend high-fiber diet or if unable a fiber supplement such as Metamucil or Citrucel. Would recommend repeat colonoscopy in 7 to 10 years, sooner if symptoms should develop. She will return to the ongoing care of Dr. Jurado at [facility]. Valeria Estrada MD JM/MODL /[id number] cc: Dr. Jurado [facility] Copies: ~ Electronically Signed By: VALERIA ESTRADA MD 08/25/24 1530 PATIENT NAME: MINI CERVANTES OPERATIVE REPORT DATE OF : 75 REPORT #: [id number] PHYSICIAN: VALERIA ESTRADA MD PCP: HADLEY JURADO MD REPORT IS CONFIDENTIAL AND NOT TO BE RELEASED WITHOUT AUTHORIZATION
== END 2024-08-23 13:45 | disposition home or self-care (01) ==
LOC: DS 10:26
PROVIDERS: ATTEND Surgery
PROC: 0DBC8ZZ Excision of Ileocecal Valve, Via Natural or Artificial Opening Endoscopic (ICD-10-PCS; principal; 2024-08-23 12:00)
DX: Z12.11 Encounter for screening for malignant neoplasm of colon (principal); D12.6 Benign neoplasm of colon, unspecified; K57.30 Diverticulosis of large intestine without perforation or abscess without bleeding; K64.8 Other hemorrhoids; E66.01 Morbid (severe) obesity due to excess calories; Z68.42 Body mass index [BMI] 45.0-49.9, adult; Z79.899 Other long term (current) drug therapy; Z88.5 Allergy status to narcotic agent; Z88.8 Allergy status to other drugs, medicaments and biological substances; Z96.652 Presence of left artificial knee joint; Z98.84 Bariatric surgery status
CPT/HCPCS: 84703; 99153; G0500; J0690; J2250; J2405; J3010; J7121